=== PATIENT | male | born 1990 | race Caucasian/White ===

== ENCOUNTER → 2016-11-23 08:54 | Day surgery (SDC) | payer OTHER ==
[~2016-11-23 08:54] MED LIST: Buffered Lidocaine 1% SYR 3ML* 3 ML/SYR SYRINGE INTRADERM ONE; Buffered Lidocaine 1% SYR 3ML* 3 ML/SYR SYRINGE ONE; Bupivacaine 0.25% SDV* 30 ML ONE; Bupivacaine 0.5% W/EPI SDV* 30 ML VIAL ONE; Metoprolol Tartrate IV* 1 MG/ML 5 ML VIAL ONE; Midazolam* 1 MG/ML 5 ML VIAL (5 MG) ONE; Propofol* 10 MG/ML 20 ML BTL IV PUSH ONE; ceFAZolin 2 GM PREMIX (*) 2 GM/50 ML BAG IVPB ONE; fentaNYL* 50 MCG/ML 2 ML VIAL (100 MCG VIAL) ONE
[2016-11-23 13:26] VITALS: BP 117/70
--- NOTE | 2016-11-23 23:11 | OP ---
DATE OF OPERATION: 11/23/16 - [facility] DATE OF : 89 SURGEON: Troy Wagner MD PLUMBER'S ASSISTANT: DAVID Andres ANESTHESIOLOGIST: Dr. Velasquez. ANESTHESIA: General LMA plus axillary block. 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 OPERATIVE PROCEDURE: 1. Right fourth carpometacarpal arthrodesis with autogenous local bone grafting and internal fixation. 2. Right fifth carpometacarpal arthrodesis with autogenous bone grafting and internal fixation. ESTIMATED BLOOD LOSS: 20 mL. COMPLICATIONS: None. INDICATIONS: Nathan is a 26-year-old male. Six or 7 years ago, he was in the when he had right fourth and fifth dorsal fracture dislocations at the carpometacarpal joints. He did not want to take any time off from his duties and so he continued to work and just let the bones heal where they lay. Since then he is now out of the and he is out working and his hand has been functioning reasonably well; however, he has developed significant pain on the ulnar side of that hand. He also had significant deformity at the dorsal bony deformity of the carpometacarpal joint and loss of the fourth and fifth prominences. 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 We talked about risks and benefits and ultimately we elected to proceed with an arthrodesis of the right fourth and fifth carpometacarpal joints. FINDINGS: Significant posttraumatic arthrosis with dorsal bony formation at the dorsal aspect of the hamate. DESCRIPTION OF PROCEDURE: Nathan was seen in the preoperative holding area and the correct site and side were marked. We came back to the operating room, where an axillary block was performed. The arm was then prepped and draped in the usual fashion and formal time-out was performed. I went ahead and made a lazy-S shaped incision over the dorsal aspect of the fourth and fifth carpometacarpal joints. Full-thickness flaps were raised off the paratenon. The superficial bridging veins were mobilized and a couple of veins were ligated to allow for exposure. The dorsal ulnar sensory nerve was identified and this was elevated with a flap and retracted and protected throughout the procedure. I then developed the interval between the EDC, extensor tendons, and the EDM. This took us down to the dorsal periosteum. I then incised the dorsal periosteum in line with the fifth metacarpal and raised subperiosteal flaps to expose the proximal aspect of the fifth metacarpal base, the carpometacarpal joint, and the dorsal aspect of the hamate. I then similarly made a longitudinal incision over the dorsal periosteum in line with the fourth metacarpal bone. Subperiosteal flaps were raised to expose the proximal fourth metacarpal joint and so as the fourth CMC joint and the hamate. There was significant extra bony formation on the dorsal aspect of the hamate in response to the dislocated fourth and fifth metacarpal bones. I went head and took down this extra bone to get back to the normal dorsal surface of the hamate. In doing so, I was able to better expose the carpometacarpal joints. The fifth metacarpal joint had essentially ankylosed. The fourth carpometacarpal joint still had some wiggle to it. At this point, I went ahead and used the sagittal saw to make some initial cuts and then I completed the rest of the bony excision with the bur to get back to healthy cancellous bone edges both on the proximal aspect of the metacarpals and the distal hamate. At this point, I went ahead and better aligned the fusion surfaces and opposed them and held them in compression while 2 K-wires were placed, one through the base of the fourth into the hamate and another to the base of the fifth into the hamate. The wires were placed in such a way so as to be out of the way of the plates. Once I had the bones opposed, I went ahead and brought in a straight 2.0 mm variable-angle plate off of the [employer] modular hand system. This is a 12-0 plate and it was snipped right in the middle to give me two 6-0 plates. I then contoured the plate and placed over the dorsal aspect of the fifth metacarpal on the ulnar aspect of the hamate. Once I had the plate positioned, I checked under fluoroscopy and then I went ahead and placed the 2 proximal screws followed by the first distal screw and compression mode. I then placed the 2 additional distal screws. These were a combination of variable-angle locking screws and cortical screws distally. This looked very nice. I then turned my attention to the fourth carpometacarpal joint. I went ahead and placed my plate and provisionally fixed it and then secured it down with screws in similar fashion as I had done on the fifth carpometacarpal fusion. I then brought in fluoroscopy. Proximally, the plate was overlapping the capital hamate joint. The screws were all inside of the hamate but there was some overhang of the proximal aspect of the plate over the capitate. I did not like that, so I went ahead and removed all the screws. I advanced the plate down one hole and then placed one of the cortical screws distally. I rotated the plate in place and checked for fluoroscopic imaging. The proximal aspect of the plate was now entirely on the hamate. I then went ahead and redrilled and placed one variable-angle locking screw into the hamate. I then went ahead and filled in the remainder of the holes distally with one variable- angle locking screw and the other screws were cortical screws. Fluoroscopic images at this point were very nice. I then went ahead and took some autogenous bone graft that I had obtained in removing the dorsal bony masses from the base of the fourth and fifth metacarpals as well as the dorsal aspect of the distal hamate. These were morcellized and then the autogenous local bone graft was packed into any gaps of the fusion sites. This filled in everything very nicely. At this point, I decided that just having one screw in the hamate on the fourth carpometacarpal fusion was adequate as the fit was nicely fixed and the volar intermetacarpal ligaments should do a nice job holding the fourth metacarpal in place. At this point, I went ahead and closed up the dorsal periosteal layer over the plates. The plates were entirely covered. I checked to make sure that the tendons glided easily and they were hung up by any stitches. Everything looked good. I went ahead and irrigated the wound and the skin was closed with some 4-0 nylon suture. The periosteal layer had been closed with 4-0 Polysorb suture with the notch buried. Tourniquet was deflated during the closure of the periosteal layer. The arm had been exsanguinated and the tourniquet inflated to 250 mmHg prior to making incision. Total tourniquet time was a little over 140 minutes. All the tissues pinked up nicely immediately after tourniquet deflation. I then went ahead and dressed the wound with Xeroform, 4x4s, sterile Webril, and an ulnar gutter splint was applied. He was then awoken back up and taken to the recovery room in stable condition. POSTOPERATIVE PLAN: I have instructed him to gently wiggle the MP joints to keep the tendons gliding. I went ahead and contoured the splint in such a way that he will be able to have the capability of gently moving the MP joints. He understands that he is to do absolutely no lifting, pushing, or pulling. He is going to follow up in a week and half for suture removal. [id number]/[facility] #: [id number] DIPESH
--- NOTE | 2016-11-24 13:14 | RAD ---
INDICATION: Right hand pain COMPARISONS: 11/03/2016 TECHNIQUE: Fluoroscopy was provided for a surgical procedure. Total fluoroscopy time is: 28 seconds FINDINGS: Spot images demonstrate a fixation plate across the fourth and fifth CMC joints IMPRESSION: FLUOROSCOPY WAS PROVIDED FOR A SURGICAL PROCEDURE CPT II Codes: 6045F
== END | disposition home or self-care (01) ==
LOC: OREAST 08:54
PROVIDERS: ATTEND Orthopaedic Surgery Hand Surgery
DX: M19.141 Post-traumatic osteoarthritis, right hand (principal)
CPT/HCPCS: 76000; C1713; C1776; J0690; J2250; J2704; J3010; J3490

== ENCOUNTER 2017-03-20 20:53 | Emergency (ER) | payer BC, OTHER ==
[2017-03-20] MEDS ORDERED: Tetanus-Diptheria Toxoids* 0.5 ML SYRINGE IM ONE (21:31)
--- NOTE | 2017-03-20 22:08 | RAD ---
INDICATION: Mani R injury to the right index finger TECHNIQUE: 3 views of the right index finger were obtained. FINDINGS: The bones are normal alignment. Joint spaces appear maintained. No fracture is seen. Plate and screw fixators are partially visualized overlying the metacarpals of the fourth and fifth fingers. IMPRESSION: NO RADIOGRAPHICALLY APPARENT FRACTURE, DISLOCATION OR SUBCUTANEOUS FOREIGN BODY.
[2017-03-20] MEDS ORDERED: Tetan/Diph/Pertus SYR(Tdap)* 0.5 ML SYR(BOOSTRIX) use SYR IM ONE (22:18)
[2017-03-20] MEDS ORDERED: Cephalexin CAP* 500 MG PO ONE (22:19)
--- NOTE | 2017-03-20 23:06 | ED ---
Upper Extremity Pain - HPI Summary HPI Summary: Pt here w/ Rt dorsum index finger lac w/ chainsaw - was sharpening blade and slipped when he accidentally cut himself. Unsure if tetanus is UTD. Denies numbness/tingling/weakness. Moving well w/o restriction. Bleeding controlled w/ pressure and elevation. No other injuries to report at this time. - History of Current Complaint Chief Complaint: EDLacSutureRecheck Stated Complaint: FINGER LAC Time Seen by Provider: 03/20/17 21:15 Hx Obtained From: Patient - Allergies/Home Medications Allergies/Adverse Reactions: Allergies Allergy/AdvReac Type Severity Reaction Status Date / Time No Known Allergies Allergy Verified 03/20/17 20:58 PMH/Surg Hx/FS Hx/Imm Hx Previously Healthy: Yes Endocrine/Hematology History: Denies: Hx Anticoagulant Therapy, Hx Blood Disorders, Hx Unexplained Bleeding Sensory History: Denies: Hx Contacts or Glasses, Hx Hearing Aid Opthamlomology History: Denies: Hx Contacts or Glasses - Surgical History Surgery Procedure, Year, and Place: [id number] WISDOM TEETH, 2 - [facility] / 2 IN [place] Hx Anesthesia Reactions: No Infectious Disease History: No Infectious Disease History: Denies: Traveled Outside the [place] in Last 30 Days - Social History Lives: With Family Alcohol Use: Occasionally Hx Substance Use: No Substance Use Type: Reports: None Hx Tobacco Use: Yes Smoking Status (MU): Former Smoker Type: Cigarettes Amount Used/How Often: 1/2 PPD FOR ABOUT 2 YEARS Review of Systems Constitutional: Negative Positive: no symptoms reported Musculoskeletal: Negative Skin: Other - see HPI Neurological: Negative Psychological: Normal All Other Systems Reviewed And Are Negative: Yes Physical Exam Triage Information Reviewed: Yes Vital Signs On Initial Exam: Initial Vitals Temp Pulse Resp BP Pulse Ox 98.4 F 88 14 146/84 98 03/20/17 20:56 03/20/17 20:56 03/20/17 20:56 03/20/17 20:56 03/20/17 20:56 Vital Signs Reviewed: Yes Appearance: Positive: Well-Appearing, No Pain Distress, Well-Nourished Skin: Positive: Warm - laceration over dorsum of Rt index finger, just distal to MCP joint - bleeidng w/ flexion Head/Face: Positive: Normal Head/Face Inspection Eyes: Positive: Normal, EOMI, Conjunctiva Clear ENT: Positive: Hearing grossly normal Respiratory/Lung Sounds: Positive: Breath Sounds Present Cardiovascular: Positive: Normal, Pulses are Symmetrical in both Upper and Lower Extremities Musculoskeletal: Positive: Normal, Strength/ROM Intact Neurological: Positive: Normal, Sensory/Motor Intact, Alert, Oriented to Person Place, Time, CN Intact II-III Psychiatric: Positive: Normal Procedures - Laceration/Wound Repair 1 Location: upper extremity - Rt index finger Description: Linear Anesthesia: Digital, Lido Length, Depth and Shape: 1.5 cm x 3mm - tendon visible - does not appear to be frayed or severed however radial border is not completely visualized. No nerves or vessels ID'd. Betadine Prep?: Yes Irrigated w/ Saline (ccs): 250 - sterile saline Laceration/Wound Explored: clean Closure: Single Layer Suture Type: Prolene - 5-0 Number of Sutures: 3 Layer Closure?: No Sterile Dressing Applied?: Yes - triple anbx ointment + gauze + coban Diagnostics - Vital Signs Vital Signs Temp Pulse Resp BP Pulse Ox 03/20/17 20:56 98.4 F 88 14 146/84 98 - Laboratory Lab Statement: Any lab studies that have been ordered have been reviewed, and results considered in the medical decision making process. Course/Dx - Course Course Of Treatment: Wound appears clean however given the nature of injury and proximity to tendon, anbx rx'd. Tendon does not appear to be injured but placed pt in splint to allow wound to rest and to prevent rutpure of sutures. F/u w/ hand specialist. Reviewed danger s/sx of when to seek medical attention sooner. - Diagnoses Provider Diagnoses: Laceration of right index finger Discharge - Discharge Plan Condition: Stable Disposition: HOME Prescriptions: Cephalexin CAP* [Keflex CAP*] 500 mg PO BID #14 cap Patient Education Materials: Care For Your Stitches (ED), Finger Laceration (ED ) Referrals: Troy Wagner MD [Medical Doctor] - Additional Instructions: Rest, ice, elevate You may take ibuprofen and/or acetaminophen with food as needed for pain Keep dressing clean, dry and in place for 48 hours - after this time, you may remove dressing to gently wash wound with antibacterial soap and water daily - pat dry with clean cloth and reapply triple antibiotic ointment along with splint. Follow-up with Dr. Wagner later this week or early next. Call tomorrow to schedule. *If you develop redness, swelling, streaking, purulent drainage, seek medical attention sooner
[2017-03-20 23:09] VITALS: BP 139/76
== END 2017-03-20 23:08 | disposition home or self-care (01) ==
LOC: ED 20:53
DX: S61.210A Laceration without foreign body of right index finger without damage to nail, initial encounter (principal); W29.3XXA Contact with powered garden and outdoor hand tools and machinery, initial encounter; Y93.9 Activity, unspecified; Y92.9 Unspecified place or not applicable; Y99.9 Unspecified external cause status; Z87.891 Personal history of nicotine dependence
CPT/HCPCS: 12001; 73140; 90715; 99282; A9270-GY

== ENCOUNTER 2018-11-20 19:08 | Emergency (ER) | payer OTHER ==
[2018-11-20] MEDS ORDERED: Naproxen TAB* 250 MG PO ONE (19:25)
--- NOTE | 2018-11-20 20:26 | ED ---
GI/ HPI - HPI Summary HPI Summary: Pt is a 28 y/o M presenting to the ED with a chief complaint of urogenital pain intermittent for about 1 month. His R testicle does not seem to hurt, but it causes discomfort, and it sometimes causes pain in the LLQ. The pt denies any urinary symptoms. - History of Current Complaint Chief Complaint: EDUrogenitalProblems Time Seen by Provider: 11/20/18 19:44 Stated Complaint: TESTICULAR PAIN Hx Obtained From: Patient Onset/Duration: Started Days Ago, Still Present Timing: Intermittent Severity: Mild Current Severity: Mild Pain Intensity: 0 Additional Locations for Males: Testicles Pain Characteristics: Cramping, Other: - discomfort Pain Radiates to: LLQ Associated Signs and Symptoms: Positive: Other: - L testicular swelling Aggravating Factor(s): Nothing Alleviating Factor(s): Position - Allergy/Home Medications Allergies/Adverse Reactions: Allergies Allergy/AdvReac Type Severity Reaction Status Date / Time No Known Allergies Allergy Verified 11/20/18 19:23 Home Medications: Home Medications NK [No Home Medications Reported] 11/20/18 [History Confirmed 11/20/18] PMH/Surg Hx/FS Hx/Imm Hx Previously Healthy: Yes Endocrine/Hematology History: Denies: Hx Anticoagulant Therapy, Hx Blood Disorders, Hx Diabetes, Hx Unexplained Bleeding Cardiovascular History: Denies: Hx Hypertension, Hx Pacemaker/ICD GI History: Reports: Other GI Disorders - hx of hydrocele on L testicle History: Denies: Hx Renal Disease Sensory History: Denies: Hx Contacts or Glasses, Hx Hearing Aid Opthamlomology History: Denies: Hx Contacts or Glasses Neurological History: Reports: Other Neuro Impairments/Disorders - CLOSED -TBI 2013 Psychiatric History: Denies: Hx Panic Disorder - Surgical History Surgery Procedure, Year, and Place: [id number] WISDOM TEETH, 2 - [facility] / 2 IN [place]. 4TH & 5TH METACARPAL INJURY - Rt HAND - PLATE & SCREWS Hx Anesthesia Reactions: No Infectious Disease History: No Infectious Disease History: Denies: Traveled Outside the [place] in Last 30 Days - Family History Known Family History: Negative: Renal Disease - Social History Alcohol Use: Occasionally Hx Substance Use: No Substance Use Type: Reports: None Hx Tobacco Use: Yes Smoking Status (MU): Former Smoker Type: Cigarettes Amount Used/How Often: 1/2 PPD FOR ABOUT 2 YEARS Review of Systems Negative: Fever Positive: other - testicular discomfort. Negative: discharge, hematuria All Other Systems Reviewed And Are Negative: Yes Physical Exam - Summary Physical Exam Summary: Appearance: Well appearing, no pain distress Skin: warm, dry, reflects adequate perfusion Head/face: normal Eyes: EOMI, MUSA ENT: mucous membranes moist Neck: supple, non-tender Respiratory: CTA, breath sounds present Cardiovascular: RRR, pulses symmetrical Abdomen: non-tender, soft Bowel Sounds: present Musculoskeletal: normal, strength/ROM intact Neuro: normal, sensory motor intact, A&Ox3 : R testicle double the size of the L testicle, fullness of epididymal area Triage Information Reviewed: Yes Vital Signs On Initial Exam: Initial Vitals Temp Pulse Resp BP Pulse Ox 99.8 F 86 16 125/91 96 11/20/18 19:19 11/20/18 19:19 11/20/18 19:19 11/20/18 19:19 11/20/18 19:19 Vital Signs Reviewed: Yes Diagnostics - Vital Signs Vital Signs Temp Pulse Resp BP Pulse Ox 11/20/18 19:19 99.8 F 86 16 125/91 96 - Laboratory Lab Results: Urine negative Lab Statement: Any lab studies that have been ordered have been reviewed, and results considered in the medical decision making process. - Ultrasound No standard instances Ultrasound Interpretation Completed By: Radiologist Summary of Ultrasound Findings: 1. No testicular mass or current evidence for torsion with color-flow and vascular waveforms documented. 2. Large right hydrocele with some limited debris. Minimal left hydrocele. ED physician has reviewed this report. GIGU Course/Dx - Course Course Of Treatment: Patient with 1 month of testicular swelling without much pain. Ultrasound indicates hydrocele which she had known history of. No torsion or evidence of epididymitis. No discharge. GC/chlamydia testing pending. Urine negative. Discharged to follow-up with urology on NSAID. Nurse 's notes reviewed. - Diagnoses Differential Diagnoses - Male: Other - Testicular torsion, hydrocele/varicocele , epididymitis Provider Diagnoses: Hydrocele, right Discharge - Sign-Out/Discharge Documenting (check all that apply): Patient Departure - Discharge Plan Condition: Improved Disposition: HOME Patient Education Materials: Hydrocele (ED) Referrals: Norman Hutchinson MD [Primary Care Provider] - Ross Loya MD [Medical Doctor] - Additional Instructions: Tylenol, ibuprofen as needed for discomfort. Tightfitting underwear may help. Call urologist to schedule follow-up. Return with severe pain, worse, new symptoms or other concerns. - Billing Disposition and Condition Condition: IMPROVED Disposition: Home - Attestation Statements Document Initiated by Scribe: Yes Documenting Scribe: Soni Marte Provider For Whom Scribe is Documenting (Include Credential): Harsha Clancy MD. Scribe Attestation: Soni Brooke, scribed for Harsha Clancy MD. on 11/20/18 at 2241. Scribe Documentation Reviewed: Yes Provider Attestation: The documentation as recorded by the cresencioibe, Soni Marte accurately reflects the service I personally performed and the decisions made by , Harsha Clancy MD. Status of Scribe Document: Viewed
[2018-11-20 20:38] LABS: Urine Appearance Clear; Urine Bacteria Absent (Absent); Urine Bilirubin Negative (Negative); Urine Blood 1+ (Negative); Urine Color Yellow; Urine Glucose Negative (Negative); Urine Ketones Negative (Negative); Urine Nitrite Negative (Negative); Urine Protein Negative (Negative); Urine Red Blood Cell Trace(0-2/hpf) (Absent); Urine Specific Gravity 1.014 (1.010-1.030); Urine Urobilinogen Negative (Negative); Urine White Blood Cell Trace(0-5/hpf) (Absent)
[2018-11-20 20:51] VITALS: BP 127/83
[2018-11-21 11:33] LABS: Neisseria gonorrhoeae (GC) RNA Negative (Negative)
== END 2018-11-20 20:27 | disposition home or self-care (01) ==
LOC: ED 19:08
DX: N43.3 Hydrocele, unspecified (principal); R10.32 Left lower quadrant pain; N50.812 Left testicular pain; Z87.891 Personal history of nicotine dependence
CPT/HCPCS: 76870; 81003; 81015; 87086; 87491; 87591; 99282; A9270-GY

== ENCOUNTER 2018-11-27 19:02 | Emergency (ER) | payer OTHER ==
[2018-11-27] MEDS ORDERED: NS 0.9% 1000 ML** 1,000 ML IV ONE (19:48)
[2018-11-27 20:11] LABS: ABS Basophils 0.1 10^3/ul (0-0.2); ABS Eosinophils 0.1 10^3/ul (0-0.6); ABS Lymphocytes 1.7 10^3/ul (1.0-4.8); ABS Monocytes 0.8 10^3/ul (0-0.8); ABS Neutrophils 4.7 10^3/ul (1.5-7.7); ABS Nucleated RBC 0 10^3/ul; Eosinophil % 1.3 %; Hematocrit 46 % (42-52); Hemoglobin 16.2 g/dl (14.0-18.0); Lymphocyte % 23.3 %; Mean Corpuscular HGB Conc 35 g/dl (31-36); Mean Corpuscular Hemoglobin 30 pg (27-31); Mean Corpuscular Volume 86 fL (80-94); Mean Platelet Volume 6.6 fL (7.4-10.4); Nucleated Red Blood Cells % 0; Platelet Count 205 10^3/ul (150-450); Red Blood Count 5.33 10^6/ul (4.00-5.40); Red Cell Distribution Width 13 % (10.5-15); White Blood Count 7.4 10^3/ul (3.5-10.8)
[2018-11-27 20:34] LABS: Albumin 4.4 g/dL (3.2-5.2); Albumin/Globulin Ratio 1.6 (1-3); BUN/Creatinine Ratio 15.5 (8-20); C Reactive Protein 1.17 mg/L (<8.01); Calcium 9.1 mg/dL (8.6-10.3); EGFR African American 104.8 (>60); EGFR Non-African American 86.6 (>60); Globulin 2.7 g/dL (2-4); Magnesium 1.9 mg/dL (1.9-2.7); Potassium 4.2 mmol/L (3.5-5.0); Total Bilirubin 0.5 mg/dL (0.2-1.0); Total Protein 7.1 g/dL (6.4-8.9)
--- NOTE | 2018-11-27 20:45 | ED ---
GI/ HPI - HPI Summary HPI Summary: 28-year-old male presents with abdominal pain and diarrhea for the past week and a half. He states that all his stools have been loose. Denies eating anything different. No one else sick. He denies any fevers. No nausea vomiting. He admits to decreased appetite. Denies any weakness. No cough. No urinary symptoms. No flank pain. Has never had this before. Denies any blood in his stool. No dark tarry stool. No history family history of ulcerative colitis or Crohn's. - History of Current Complaint Chief Complaint: EDAbdPain Time Seen by Provider: 11/27/18 19:41 Stated Complaint: ABD PAIN, DIARRHEA Pain Intensity: 5 - Allergy/Home Medications Allergies/Adverse Reactions: Allergies Allergy/AdvReac Type Severity Reaction Status Date / Time No Known Allergies Allergy Verified 11/27/18 19:23 PMH/Surg Hx/FS Hx/Imm Hx Endocrine/Hematology History: Denies: Hx Anticoagulant Therapy, Hx Blood Disorders, Hx Diabetes, Hx Unexplained Bleeding Cardiovascular History: Denies: Hx Hypertension, Hx Pacemaker/ICD GI History: Reports: Other GI Disorders - hx of hydrocele on L testicle History: Denies: Hx Renal Disease Sensory History: Denies: Hx Contacts or Glasses, Hx Hearing Aid Opthamlomology History: Denies: Hx Contacts or Glasses Neurological History: Reports: Other Neuro Impairments/Disorders - CLOSED -TBI 2013 Psychiatric History: Denies: Hx Panic Disorder - Surgical History Surgery Procedure, Year, and Place: [id number] WISDOM TEETH, 2 - [facility] / 2 IN [place]. 4TH & 5TH METACARPAL INJURY - Rt HAND - PLATE & SCREWS Hx Anesthesia Reactions: No Infectious Disease History: No Infectious Disease History: Denies: Traveled Outside the [place] in Last 30 Days - Family History Known Family History: Negative: Renal Disease - Social History Alcohol Use: Occasionally Hx Substance Use: No Substance Use Type: Reports: None Hx Tobacco Use: Yes Smoking Status (MU): Former Smoker Type: Cigarettes Amount Used/How Often: 1/2 PPD FOR ABOUT 2 YEARS Review of Systems Negative: Fever Negative: Chest Pain Negative: Shortness Of Breath Positive: Abdominal Pain, Diarrhea. Negative: Vomiting, Nausea All Other Systems Reviewed And Are Negative: Yes Physical Exam Triage Information Reviewed: Yes Vital Signs On Initial Exam: Initial Vitals Temp Pulse Resp BP Pulse Ox 99.1 F 97 16 141/94 97 11/27/18 19:19 11/27/18 19:19 11/27/18 19:19 11/27/18 19:19 11/27/18 19:19 Vital Signs Reviewed: Yes Appearance: Positive: Well-Appearing Skin: Positive: Warm, Dry Head/Face: Positive: Normal Head/Face Inspection Eyes: Positive: Normal, Conjunctiva Clear ENT: Positive: Pharynx normal Respiratory/Lung Sounds: Positive: Clear to Auscultation, Breath Sounds Present Cardiovascular: Positive: Normal, RRR Abdomen Description: Positive: Soft, Other: - tenderness LLQ, no rebound. Negative: CVA Tenderness (R), CVA Tenderness (L) Bowel Sounds: Positive: Present Musculoskeletal: Positive: Normal Neurological: Positive: Normal Psychiatric: Positive: Normal Diagnostics - Vital Signs Vital Signs Temp Pulse Resp BP Pulse Ox 11/27/18 20:14 76 119/72 96 11/27/18 20:00 90 96 11/27/18 19:45 81 96 11/27/18 19:44 94 134/91 96 11/27/18 19:19 99.1 F 97 16 141/94 97 - Laboratory Lab Results: Lab Results 11/27/18 11/27/18 11/27/18 Range/Units 20:04 20:04 20:04 WBC 7.4 (3.5-10.8) 10^3/ul RBC 5.33 (4.00-5.40) 10^6/ul Hgb 16.2 (14.0-18.0) g/dl Hct 46 (42-52) % MCV 86 (80-94) fL MCH 30 (27-31) pg MCHC 35 (31-36) g/dl RDW 13 (10.5-15) % Plt Count 205 (150-450) 10^3/ul MPV 6.6 L (7.4-10.4) fL Neut % (Auto) 64.2 % Lymph % (Auto) 23.3 % [place] % (Auto) 10.3 % Eos % (Auto) 1.3 % Baso % (Auto) 0.9 % Absolute Neuts (auto) 4.7 (1.5-7.7) 10^3/ul Absolute Lymphs (auto) 1.7 (1.0-4.8) 10^3/ul Absolute Monos (auto) 0.8 (0-0.8) 10^3/ul Absolute Eos (auto) 0.1 (0-0.6) 10^3/ul Absolute Basos (auto) 0.1 (0-0.2) 10^3/ul Absolute Nucleated RBC 0 10^3/ul Nucleated RBC % 0 Sodium 136 (135-145) mmol/L Potassium 4.2 (3.5-5.0) mmol/L Chloride 104 (101-111) mmol/L Carbon Dioxide 27 (22-32) mmol/L Anion Gap 5 (2-11) mmol/L BUN 16 (6-24) mg/dL Creatinine 1.03 (0.67-1.17) mg/dL Est GFR ( Amer) 104.8 (>60) Est GFR (Non-Af Amer) 86.6 (>60) BUN/Creatinine Ratio 15.5 (8-20) Glucose 85 (70-100) mg/dL Lactic Acid 0.6 (0.5-2.0) mmol/L Calcium 9.1 (8.6-10.3) mg/dL Magnesium 1.9 (1.9-2.7) mg/dL Total Bilirubin 0.50 (0.2-1.0) mg/dL AST 18 (13-39) U/L ALT 31 (7-52) U/L Alkaline Phosphatase 67 (34-104) U/L C-Reactive Protein 1.17 (<8.01) mg/L Total Protein 7.1 (6.4-8.9) g/dL Albumin 4.4 (3.2-5.2) g/dL Globulin 2.7 (2-4) g/dL Albumin/Globulin Ratio 1.6 (1-3) Lipase 23 (11.0-82.0) U/L Result Diagrams: 11/27/18 20:04 11/27/18 20:04 Lab Statement: Any lab studies that have been ordered have been reviewed, and results considered in the medical decision making process. - CT No standard instances CT Interpretation Completed By: Radiologist Summary of CT Findings: IMPRESSION: No acute findings. Re-Evaluation - Re-Evaluation First Eval Re-Evaluation Time: 20:53 Change: Improved Comment: feeling better after fluids GIGU Course/Dx - Course Course Of Treatment: 28-year-old male presents with abdominal pain and diarrhea for the past week and a half. He states that all his stools have been loose. Denies eating anything different. No one else sick. He denies any fevers. No nausea vomiting. He admits to decreased appetite. Denies any weakness. No cough. No urinary symptoms. No flank pain. Has never had this before. Denies any blood in his stool. No dark tarry stool. No history family history of ulcerative colitis or Crohn's. On exam tenderness left lower quadrant. No rebound. wbc normal. CRP normal. With left lower quadrant and diarrhea CT. CT shows no acute findings. patient unable to provide stool will in ED. has not been antibiotic recently. states does occassionally drink out of a stream. just should follow up with primary to get stool/ova and parasite test kit if symptoms persist. gave instruction can use loperamide if diarrhea is becoming an issue for hydration status. patient understand and agrees with plan. - Diagnoses Differential Diagnoses - Male: Diverticulosis, Gastroenteritis (Bacterial), Gastroenteritis (Viral), Urinary Tract Infection Provider Diagnoses: Abdominal pain, Diarrhea Discharge - Sign-Out/Discharge Documenting (check all that apply): Patient Departure Patient Received Moderate/Deep Sedation with Procedure: No - Discharge Plan Condition: Good Disposition: HOME Patient Education Materials: Acute Diarrhea (ED) Referrals: Norman Hutchinson MD [Primary Care Provider] - Additional Instructions: can use loperamide Initial: 4 mg (2 tablets), followed by 2 mg (1 tablet) after each loose stool (maximum: 16 mg/day) if diarrhea persists Drink small amounts of fluid as tolerated When able to eat follow BRAT diet: Bananas, rice, applesauce, toast Take ibuprofen or Tylenol for pain as needed every 6 hours Follow up with primary within 5 days Return to ED if develop any new or worsening symptoms - Billing Disposition and Condition Condition: GOOD Disposition: Home
[2018-11-27] MEDS ORDERED: Iohexol 300* (CONTRAST) 10 ML SDV IV ONE (21:18)
[2018-11-27 23:01] VITALS: BP 120/80
== END 2018-11-27 23:00 | disposition home or self-care (01) ==
LOC: ED 19:02
DX: R10.9 Unspecified abdominal pain (principal); R19.7 Diarrhea, unspecified; Z87.891 Personal history of nicotine dependence
CPT/HCPCS: 36415; 74177; 80053; 83605; 83690; 83735; 85025; 86140; 96361; 96374; 99283; Q9967